=== PATIENT | female | born 1945 | race Hispanic/Latino ===

== ENCOUNTER 2019-09-19 15:44 | Inpatient (IN) | payer MEDICARE ==
[~2019-09-19] VITALS: Ht 144.8 cm; Wt 51.8 kg
[~2019-09-19 15:44] MED LIST: APIX2.5T PO; CARV12.580 PO; FURO40TA5 PO; HYDR-4154 PO; INSLAN SQ; INSU100C6 SQ; LEVO75TA10 PO; MYCOPHENOLATE PO; SIMV-43 PO; TACR0.5C12 PO
[2019-09-19 16:10] LABS: BASOPHILS % (AUTO) 0.1 % (0.0-5.0); HEMATOCRIT 31.3 % (36-48); LYMPHOCYTES % (AUTO) 11.6 % (21.0-51.0); MEAN CORPUSCULAR HEMOGLOBIN 25.8 pg (27.0-33.0); MEAN CORPUSCULAR HGB CONC 30.7 g/dL (32.0-36.0); MEAN CORPUSCULAR VOLUME 84.1 fL (79-99); MONOCYTES % (AUTO) 7.3 % (3.0-13.0); NEUTROPHILS % (AUTO) 78.3 % (40.0-77.0); PLATELET COUNT (AUTO) 211 K/uL (130-400); RED BLOOD CELL COUNT(AUTO) 3.72 MIL/uL (4.00-5.50); RED CELL DISTRIBUTION WIDTH 17.1 % (11.0-15.5); WHITE BLOOD COUNT (AUTO) 8.9 K/uL (4.8-10.8)
[2019-09-19 16:28] LABS: APPEARANCE,URINE CLOUDY (CLEAR); BILIRUBIN,URINE NEGATIVE (NEGATIVE); COLOR,URINE YELLOW (YELLOW); GLUCOSE, URINE (UA) NEGATIVE (NEGATIVE); KETONES,URINE NEGATIVE (NEGATIVE); LEUKOCYTE ESTERASE ,URINE LARGE (NEGATIVE); NITRATE,URINE POSITIVE (NEGATIVE); OCCULT BLOOD,URINE MODERATE (NEGATIVE); PH,URINE 5.5 (5.0-8.0); PROTEIN,URINE TRACE mg/dL (NEGATIVE); UROBILINOGEN,URINE 0.2 mg/dL (0.2-1.0)
[2019-09-19 16:44] LABS: CREATININE 1.7 mg/dL (0.5-1.5); POTASSIUM 3.2 mmol/L (3.5-5.1)
[2019-09-19 16:48] LABS: BILIRUBIN,TOTAL 0.6 mg/dL (0.2-1.0); TOTAL PROTEIN, SERUM 6.3 g/dL (6.0-8.3)
[2019-09-19 17:33] LABS: BACTERIA,URINE Few /HPF (None Seen); WBC,URINE 51-100 /HPF (0-1)
[2019-09-19 17:34] LABS: SQUAMOUS EPITHELIAL CELL,UR Rare /HPF (0-2)
[2019-09-19] MEDS ORDERED: CEFTRIAXONE SODIUM 1 GM ONE (18:27)
[2019-09-19] MEDS ORDERED: SODIUM CHLORIDE 0.9% 1000ML 1,000 ML IV ONE (18:28)
[2019-09-19] MEDS ORDERED: SODIUM CHLORIDE 0.9% 50 ML IV ONE (18:28)
[2019-09-20 00:52] VITALS: BP 131/61
[2019-09-20 03:27] VITALS: BP 127/54
[2019-09-20 04:11] LABS: HEMATOCRIT 29.9 % (36-48); MEAN CORPUSCULAR HEMOGLOBIN 26.3 pg (27.0-33.0); MEAN CORPUSCULAR HGB CONC 31.1 g/dL (32.0-36.0); MEAN CORPUSCULAR VOLUME 84.5 fL (79-99); PLATELET COUNT (AUTO) 212 K/uL (130-400); RED BLOOD CELL COUNT(AUTO) 3.54 MIL/uL (4.00-5.50); WHITE BLOOD COUNT (AUTO) 10.8 K/uL (4.8-10.8)
[2019-09-20 04:44] LABS: ALBUMIN 2.7 g/dL (3.5-5.0); BILIRUBIN,TOTAL 0.5 mg/dL (0.2-1.0); CREATININE 1.5 mg/dL (0.5-1.5); POTASSIUM 4.1 mmol/L (3.5-5.1); TOTAL PROTEIN, SERUM 5.8 g/dL (6.0-8.3)
[2019-09-20 07:30] VITALS: BP 114/47
[2019-09-20] MEDS ORDERED: [UNRECOGNIZED DRUG - OTHER] TP PRN (07:30)
[2019-09-20] MEDS ORDERED: HYDROCORTISONE/PRAMOXINE 10 GM FOAM RC PRN (07:30)
[2019-09-20] MEDS ORDERED: ERYTHROMYCIN TP PRN (07:30)
[2019-09-20] MEDS ORDERED: FERR-82 PO (07:49)
[2019-09-20] MEDS ORDERED: HC A30CR RC (07:49)
[2019-09-20] MEDS ORDERED: FURO40TA5 PO (07:49)
[2019-09-20] MEDS ORDERED: ERYT30GE8 TP (07:49)
[2019-09-20] MEDS ORDERED: PANT40TA54 PO (07:49)
[2019-09-20] MEDS ORDERED: TACR0.5C7 PO (07:49)
[2019-09-20] MEDS ORDERED: LEVO75 PO (07:49)
[2019-09-20] MEDS ORDERED: REVE175V IH (07:49)
[2019-09-20] MEDS ORDERED: PRED10TA3 PO (07:49)
[2019-09-20] MEDS ORDERED: MULT1CAP32 PO (07:49)
[2019-09-20] MEDS ORDERED: LEVO88TA7 PO (07:49)
[2019-09-20] MEDS ORDERED: CYAN100099 PO (07:49)
[2019-09-20] MEDS ORDERED: SODI325T PO (07:49)
[2019-09-20] MEDS ORDERED: CYCL30DR OU (07:49)
[2019-09-20] MEDS ORDERED: INSLAN SQ (07:49)
[2019-09-20] MEDS ORDERED: HYDR100T27 PO (07:49)
[2019-09-20] MEDS: PANTOPRAZOLE SODIUM 40 MG TABLET.DR PO SCH (08:05)
[2019-09-20] MEDS: FERROUS SULFATE 325 MG TABLET.DR PO SCH ×2 (08:08→17:42)
[2019-09-20] MEDS: LEVOTHYROXINE 88 MCG TABLET PO SCH (08:12)
[2019-09-20] MEDS: SODIUM BICARBONATE 650 MG TAB PO SCH ×2 (08:15→17:42)
[2019-09-20] MEDS: HYDRALAZINE HCL 25 MG TABLET PO SCH ×2 (09:00→20:26)
[2019-09-20] MEDS: REVEFENACIN IH SCH (09:00)
[2019-09-20] MEDS: ***HM***(Cyclosporine (Restasis) 1 DROP) OU SCH ×2 (09:00→20:28)
--- NOTE | 2019-09-20 10:12 | NUR ---
INITIAL SW spoke to patient's daughter, Yue Holguin, [phone]. She stated that patient lives with spouse, Jennifer Tay, [phone]. No home health but does have PHC with [facility] X 28 hours a week. Daughter is provider. DME: O2 concentrator/portable, walker with seat, shower chair, BPM, glucometer (uses insulin). As per daughter, patient is able to complete ADL's but needs help around the house. Patient does not drive. PCP is Dr. Tiffanie Howard. [facility]acy is [facility] in [place]. DCP is home. Addendum: 09/20/19 at 1016 by VIOLETTE CAM Amended: Links added.
[2019-09-20 11:00] VITALS: BP 129/57
[2019-09-20] MEDS: TACROLIMUS 0.5 MG CAPSULE PO SCH ×2 (11:34→20:28)
[2019-09-20] MEDS: CYANOCOBALAMIN (VITAMIN B-12) 1,000 MCG TABLET PO SCH (11:35)
[2019-09-20] MEDS: PREDNISONE 10 MG TABLET PO SCH (11:35)
[2019-09-20] MEDS: APIXABAN 2.5 MG TABLET PO SCH ×2 (11:36→20:26)
[2019-09-20] MEDS: MULTIVITAMIN TABLET PO SCH (11:36)
[2019-09-20] MEDS: CARVEDILOL 12.5 MG TABLET PO SCH ×2 (11:36→20:27)
[2019-09-20] MEDS: FUROSEMIDE 40 MG TABLET PO SCH ×2 (11:38→20:27)
[2019-09-20 16:00] VITALS: BP 141/65
[2019-09-20] MEDS ORDERED: CEFTRIAXONE SODIUM 1 GM IVP SCH (20:00)
[2019-09-20] MEDS: SIMVASTATIN 20 MG TABLET PO SCH (20:26)
--- NOTE | 2019-09-20 20:26 | NUR ---
MEDS RE-POSITIONED IN BED COMFORTABLY WITH HOB ELEVATED. SHIFT ASSESSMENT DONE, PLEASE REFER TO CHART. DUE MEDS ADMINISTERED, TOLERATED WELL. KEPT RESTED ND COMFORTABLE. CALL LIGHT WITHIN REACH. WILL MONITOR PT. Addendum: 09/20/19 at 2126 by ORLANDO CARBAJAL RN RN Amended: Links added.
[2019-09-20 20:41] VITALS: BP 142/67
[2019-09-20] MEDS ORDERED: INSULIN GLARGINE 100 UNITS/ML 10 ML VIAL SQ SCH (21:00)
--- NOTE | 2019-09-20 22:00 | NUR ---
[facility] PCP IN AND GAVE PT A BED BATH, TOLERATED ACTIVITY WELL. PT REFUSED THE WAFFLE MATTRESS, CLAIMS IT GIVE HER BODY ACHES.
[2019-09-21 00:20] VITALS: BP 155/67
--- NOTE | 2019-09-21 02:00 | NUR ---
ROUNDS PT FAIRLY ASLEEP WITH RESPIRATIONS EVEN AND UNLABORED. NO NOTED DISTRESS. KEPT UNDISTURBED FOR NOW. WILL MONITOR PT.
[2019-09-21 04:00] VITALS: BP 161/65
[2019-09-21] MEDS: PANTOPRAZOLE SODIUM 40 MG TABLET.DR PO SCH (06:20)
--- NOTE | 2019-09-21 07:15 | NUR ---
MD DR ANDREWS IN TO MAKE ROUNDS. NEW ORDERS GIVEN, PLEASE REFER TO CPOE. ENDORSING PT TO [facility] FOR MORE CARE AND MANAGEMENT.
[2019-09-21 07:30] VITALS: BP 127/57
[2019-09-21] MEDS: LEVOTHYROXINE 88 MCG TABLET PO SCH (08:12)
[2019-09-21] MEDS ORDERED: INSULIN HUMULIN R 100 UNIT/ML 3ML SQ SCH (08:15)
[2019-09-21] MEDS: ***HM***(Cyclosporine (Restasis) 1 DROP) OU SCH ×2 (09:00→21:00)
[2019-09-21] MEDS: HYDRALAZINE HCL 25 MG TABLET PO SCH ×2 (09:00→20:43)
[2019-09-21] MEDS: REVEFENACIN IH SCH (09:00)
[2019-09-21] MEDS: APIXABAN 2.5 MG TABLET PO SCH ×2 (10:02→20:42)
[2019-09-21] MEDS: FERROUS SULFATE 325 MG TABLET.DR PO SCH ×2 (10:03→16:49)
[2019-09-21] MEDS: SODIUM BICARBONATE 650 MG TAB PO SCH (10:03)
[2019-09-21] MEDS: TACROLIMUS 0.5 MG CAPSULE PO SCH ×2 (10:03→20:43)
[2019-09-21] MEDS: FUROSEMIDE 40 MG TABLET PO SCH ×2 (10:04→20:42)
[2019-09-21] MEDS: CARVEDILOL 12.5 MG TABLET PO SCH ×2 (10:04→20:43)
[2019-09-21] MEDS: MULTIVITAMIN TABLET PO SCH (10:04)
[2019-09-21] MEDS: PREDNISONE 10 MG TABLET PO SCH (10:04)
[2019-09-21] MEDS: CYANOCOBALAMIN (VITAMIN B-12) 1,000 MCG TABLET PO SCH (10:07)
[2019-09-21] MEDS ORDERED: CEFTAZIDIME PENTAHYDRATE 2 GM/VIAL IVP SCH (10:30)
[2019-09-21 10:49] VITALS: BP 136/55
[2019-09-21 11:55] LABS: INR 1.19 (0.85-1.15); PARTIAL THROMBOPLASTIN TIME 28.9 SEC (26.3-35.5); PROTHROMBIN TIME 12.8 SEC (9.6-11.6)
--- NOTE | 2019-09-21 15:21 | NUR ---
[facility] CONSULT PATIENT ASSESSED REQUESTED: PATIENT PRESENTS WITH STAGE II PRESSURE ULCER TO LT BUTTOCK AND AN UNSTAGEABLE PRESSURE ULCER TO RT HEEL. [facility] RECOMMENDATIONS SUBMITTED. Addendum: 09/21/19 at 1525 by LILI WHITEHEAD LVN Amended: Links added.
[2019-09-21 15:41] VITALS: BP 150/69
[2019-09-21] MEDS ORDERED: PHARMACY COMMUNICATION MISC SCH (16:15)
[2019-09-21] MEDS: INSULIN HUMULIN R 100 UNIT/ML 3ML SQ SCH ×2 (17:00→20:58)
[2019-09-21] MEDS: ZOSYN 3.375GM+NS 50ML 50 ML IV SCH (17:02)
[2019-09-21 19:00] VITALS: BP 140/62
[2019-09-21] MEDS: SIMVASTATIN 20 MG TABLET PO SCH (20:43)
[2019-09-21] MEDS ORDERED: INSULIN GLARGINE 100 UNITS/ML 10 ML VIAL SQ SCH ×2 (21:00)
[2019-09-22] VITALS: BP 155/67
[2019-09-22 04:00] VITALS: BP 146/62
[2019-09-22 04:20] LABS: HEMATOCRIT 27.3 % (36-48); MEAN CORPUSCULAR HEMOGLOBIN 26.2 pg (27.0-33.0); MEAN CORPUSCULAR HGB CONC 30.8 g/dL (32.0-36.0); PLATELET COUNT (AUTO) 169 K/uL (130-400); RED BLOOD CELL COUNT(AUTO) 3.21 MIL/uL (4.00-5.50); RED CELL DISTRIBUTION WIDTH 16.7 % (11.0-15.5); WHITE BLOOD COUNT (AUTO) 7.1 K/uL (4.8-10.8)
[2019-09-22 04:33] LABS: CREATININE 1.9 mg/dL (0.5-1.5); POTASSIUM 4.2 mmol/L (3.5-5.1)
[2019-09-22 05:28] LABS: BAND NEUTROPHILS % (MANUAL) 2 % (0-2); EOSINOPHILS % (MANUAL) 1 % (1-6); LYMPHOCYTES % (MANUAL) 19 % (22-44); MAN.DIFF COMMENT-IMPRESSION MANUAL DIFFERENTIAL; MONOCYTES % (MANUAL) 5 % (2-9); SEGMENTED NEUTROPHILS % 73 % (40-70)
[2019-09-22] MEDS: ZOSYN 3.375GM+NS 50ML 50 ML IV SCH (05:28)
[2019-09-22] MEDS ORDERED: DEXTROSE 50%-WATER 25 GM/50 ML VIAL IV STA (06:43)
[2019-09-22] MEDS: INSULIN HUMULIN R 100 UNIT/ML 3ML SQ SCH ×2 (06:50→12:18)
[2019-09-22] MEDS: PANTOPRAZOLE SODIUM 40 MG TABLET.DR PO SCH (06:51)
[2019-09-22] MEDS ORDERED: DEXTROSE 50%-WATER 50 ML DISP.SYRIN IV SCH (07:00)
[2019-09-22] MEDS: ***HM***(Cyclosporine (Restasis) 1 DROP) OU SCH (08:22)
[2019-09-22] MEDS: REVEFENACIN IH SCH (08:22)
[2019-09-22 08:30] VITALS: BP 150/65
[2019-09-22] MEDS: MULTIVITAMIN TABLET PO SCH (09:02)
[2019-09-22] MEDS: FUROSEMIDE 40 MG TABLET PO SCH (09:02)
[2019-09-22] MEDS: CYANOCOBALAMIN (VITAMIN B-12) 1,000 MCG TABLET PO SCH (09:02)
[2019-09-22] MEDS: FERROUS SULFATE 325 MG TABLET.DR PO SCH (09:02)
[2019-09-22] MEDS: HYDRALAZINE HCL 25 MG TABLET PO SCH (09:02)
[2019-09-22] MEDS: APIXABAN 2.5 MG TABLET PO SCH (09:02)
[2019-09-22] MEDS: LEVOTHYROXINE 88 MCG TABLET PO SCH (09:02)
[2019-09-22] MEDS: TACROLIMUS 0.5 MG CAPSULE PO SCH (09:02)
[2019-09-22] MEDS: PREDNISONE 10 MG TABLET PO SCH (09:06)
[2019-09-22] MEDS: CARVEDILOL 12.5 MG TABLET PO SCH (09:07)
[2019-09-22 12:16] VITALS: BP 136/50
[2019-09-23] MEDS ORDERED: LEVOTHYROXINE 75 MCG TABLET PO SCH (09:00)
== END 2019-09-22 14:30 | disposition home or self-care (01) | DRG 637 ==
LOC: EDH 15:44 → EDHIP 17:55 → 3BH 21:55
PROVIDERS: ADMIT Internal Medicine Nephrology; ATTEND Internal Medicine Nephrology
DX: E11.649 Type 2 diabetes mellitus with hypoglycemia without coma (principal); G93.41 Metabolic encephalopathy; T86.19 Other complication of kidney transplant; I12.0 Hypertensive chronic kidney disease with stage 5 chronic kidney disease or end stage renal disease; N39.0 Urinary tract infection, site not specified; J96.11 Chronic respiratory failure with hypoxia; Z16.12 Extended spectrum beta lactamase (ESBL) resistance; N18.6 End stage renal disease; N17.9 Acute kidney failure, unspecified; I27.20 Pulmonary hypertension, unspecified; I48.91 Unspecified atrial fibrillation; E03.9 Hypothyroidism, unspecified; G47.33 Obstructive sleep apnea (adult) (pediatric); E11.22 Type 2 diabetes mellitus with diabetic chronic kidney disease; E11.21 Type 2 diabetes mellitus with diabetic nephropathy; D64.9 Anemia, unspecified; E78.5 Hyperlipidemia, unspecified; B96.1 Klebsiella pneumoniae [K. pneumoniae] as the cause of diseases classified elsewhere; Z95.0 Presence of cardiac pacemaker; Z86.711 Personal history of pulmonary embolism; Z79.899 Other long term (current) drug therapy
CPT/HCPCS: 36415; 80048; 80053; 81001; 82947; 82948; 85025; 85027; 85610; 85730; 87077; 87088; 87186; G0378; J0696; J0713; J1815; J2543; J7030; J7070; J7507; J7512

== ENCOUNTER 2020-02-14 11:12 | Inpatient (IN) | payer MEDICARE ==
[~2020-02-14] VITALS: Ht 144.8 cm; Wt 64.4 kg
[~2020-02-14 11:12] MED LIST changes: +CYAN100099 PO; +CYCL30DR OU; +ERYT30GE8 TP; +FERR-82 PO; +HC A30CR RC; -HYDR-4154 PO; +HYDR100T27 PO; -INSU100C6 SQ; +LEVO75 PO; -LEVO75TA10 PO; +LEVO88TA7 PO; +MULT1CAP32 PO; -MYCOPHENOLATE PO; +PANT40TA54 PO; +PRED10TA3 PO; +REVE175V IH; +SODI325T PO; -TACR0.5C12 PO; +TACR0.5C7 PO
[2020-02-14 11:59] LABS: BASOPHILS % (AUTO) 0.2 % (0.0-5.0); EOSINOPHILS % (AUTO) 0.7 % (0.0-8.0); HEMATOCRIT 30.5 % (36-48); LYMPHOCYTES % (AUTO) 9.5 % (21.0-51.0); MEAN CORPUSCULAR HEMOGLOBIN 25.3 pg (27.0-33.0); MEAN CORPUSCULAR HGB CONC 30.5 g/dL (32.0-36.0); MEAN CORPUSCULAR VOLUME 83.1 fL (79-99); MONOCYTES % (AUTO) 4.7 % (3.0-13.0); PLATELET COUNT (AUTO) 196 K/uL (130-400); RED BLOOD CELL COUNT(AUTO) 3.67 MIL/uL (4.00-5.50); RED CELL DISTRIBUTION WIDTH 16.3 % (11.0-15.5); WHITE BLOOD COUNT (AUTO) 11.8 K/uL (4.8-10.8)
[2020-02-14 12:12] LABS: INR 1.01 (0.85-1.15); PARTIAL THROMBOPLASTIN TIME 25.2 SEC (26.3-35.5); PROTHROMBIN TIME 10.9 SEC (9.6-11.6)
[2020-02-14 12:16] LABS: CREATININE 1.9 mg/dL (0.5-1.5); POTASSIUM 3.6 mmol/L (3.5-5.1)
[2020-02-14 12:20] LABS: ALBUMIN 3.3 g/dL (3.5-5.0); BILIRUBIN,TOTAL 0.4 mg/dL (0.2-1.0); TOTAL PROTEIN, SERUM 6.5 g/dL (6.0-8.3)
[2020-02-14 13:30] LABS: APPEARANCE,URINE Clear (CLEAR); BILIRUBIN,URINE Negative (NEGATIVE); COLOR,URINE Yellow (YELLOW); GLUCOSE, URINE (UA) Negative (NEGATIVE); KETONES,URINE Negative (NEGATIVE); LEUKOCYTE ESTERASE ,URINE Small (NEGATIVE); NITRATE,URINE Negative (NEGATIVE); OCCULT BLOOD,URINE Trace (NEGATIVE); PH,URINE 5.5 (5.0-8.0); PROTEIN,URINE Negative (NEGATIVE); UROBILINOGEN,URINE 0.2 mg/dL (0.2-1.0)
[2020-02-14 13:43] LABS: BACTERIA,URINE Rare /HPF (None Seen); RBC,URINE 0-1 /HPF (0-1); SQUAMOUS EPITHELIAL CELL,UR Rare /HPF (0-2); WBC,URINE 0-1 /HPF (0-1)
[2020-02-14] MEDS ORDERED: ONDANSETRON 4 MG TABLET PO PRN (15:30)
[2020-02-14] MEDS ORDERED: ACETAMINOPHEN 325 MG TAB PO PRN (15:30)
[2020-02-14 18:20] VITALS: BP 120/49
--- NOTE | 2020-02-14 18:20 | NUR ---
ADMISSION PER DR. PHAN. 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 COPD. AND O2 DEPENDED . PT CAME IN FROM ER. WITH O2VIA NC [id number] AND A RICH CATHETER , SECURE TO HER LT THIGH, WITH A CLEAR YELLOW URINE, NOTED. REVIEW ADMISSION . DATA BASE PT IS UNABLETO DIRECT ANSWER TO QUESTIONS. PT IS O ELIQUIS DUE TO A-FIB. ON ELIQUIS .2.5 MG PO BID . CALL MARIAN WAS DIRECTED TO HER HANDS,
[2020-02-14 19:00] VITALS: BP 136/60
[2020-02-14] MEDS ORDERED: DEXTROSE 50%-WATER 50 ML DISP.SYRIN IV PRN (21:30)
[2020-02-14] MEDS ORDERED: GLUCAGON 1MG KIT 1 MG ML IM PRN (21:30)
[2020-02-15] VITALS: BP 133/57
[2020-02-15 04:00] VITALS: BP 140/51
[2020-02-15 05:21] LABS: HEMATOCRIT 28.8 % (36-48); MEAN CORPUSCULAR HEMOGLOBIN 25.4 pg (27.0-33.0); MEAN CORPUSCULAR HGB CONC 30.9 g/dL (32.0-36.0); MEAN CORPUSCULAR VOLUME 82.1 fL (79-99); RED BLOOD CELL COUNT(AUTO) 3.51 MIL/uL (4.00-5.50); RED CELL DISTRIBUTION WIDTH 16.1 % (11.0-15.5); WHITE BLOOD COUNT (AUTO) 8.5 K/uL (4.8-10.8)
[2020-02-15 05:45] LABS: CREATININE 1.7 mg/dL (0.5-1.5); MAGNESIUM 1.5 mg/dL (1.80-2.40); POTASSIUM 3.6 mmol/L (3.5-5.1)
[2020-02-15] MEDS: INSULIN HUMULIN R 100 UNIT/ML 3ML SQ SCH ×3 (06:30→16:30)
[2020-02-15 07:30] VITALS: BP 134/69
[2020-02-15 11:00] VITALS: BP 125/53
[2020-02-15] MEDS ORDERED: CYANOCOBALAMIN (VITAMIN B-12) 1,000 MCG TABLET PO SCH (12:46)
[2020-02-15] MEDS ORDERED: FUROSEMIDE 40 MG TABLET PO SCH (12:46)
[2020-02-15] MEDS ORDERED: PANTOPRAZOLE SODIUM 40 MG TABLET.DR PO SCH (12:47)
[2020-02-15] MEDS ORDERED: FERROUS SULFATE 325 MG TABLET.DR PO SCH (12:48)
[2020-02-15] MEDS ORDERED: PREDNISONE 10 MG TABLET PO SCH (12:48)
[2020-02-15] MEDS ORDERED: HYDRALAZINE HCL 25 MG TABLET PO SCH (12:49)
[2020-02-15] MEDS ORDERED: MULTIVITAMIN TABLET PO SCH (12:50)
[2020-02-15] MEDS: SODIUM BICARBONATE 650 MG TAB PO SCH ×2 (12:53→17:00)
[2020-02-15 16:00] VITALS: BP 160/65
--- NOTE | 2020-02-15 16:14 | NUR ---
AMADA- SPOKE TO SPOUSE ON PHONE- STATES PATIENT HAS HAD TRANSPLANT SINCE 2004, HAD HD X < 1 YEAR PRIOR TO THAT, WAS GIVNE KIDNEY BY HER DAUGHTER LEONEL, WHO IS ALSO PT'S PROVIDER > 20 HR/WK; AND PROVIDES TRANSPORTATION TO APPOINTMENT, ETC. [facility] HAS W/CHAIR, ROLLING WALKER, SHOWER CHAIR, , DAUGHTER IS , DC PLAN IS HOME, CM TO FOLLOW Addendum: 02/15/20 at 1619 by NICOLE HONG RN CM Amended: Links added.
--- NOTE | 2020-02-15 17:00 | NUR ---
NOTE DISCHARGE INSTRUCTIONS GIVEN TO PATIENT AT THIS TIME. REFER TO DC SUMMARY FOR DETAILS. SPOKE TO HE WILL PICK HER UP AT 6:00 PM
--- NOTE | 2020-02-15 17:45 | NUR ---
NOTE DISCHARGE INSTRUCTIONS GIVEN AT THIS TIME. VERBALIZED UNDERSTANDING. REFER TO JULI CRISTOBAL FOR DETAILS. PATIENT WILL LEAVE WITH RICH CATH.. IT WAS REPORTED THAT SHE CAME IN WITH HEMATURIA FROM HOME BUT UPON INSERTION OF RICH IN ER THERE HAS NOT BEEN ANY URINE PRESENT. SHE WILL FOLLOW UP WITH DR FIGUEROA IN 2-3 DAYS AND WAS INSTRUCTED TO RESUME MEDS FROM HOME TOMORROW
[2020-02-15] MEDS ORDERED: APIXABAN 2.5 MG TABLET PO SCH (21:00)
[2020-02-15] MEDS ORDERED: TACROLIMUS 0.5 MG CAPSULE PO SCH (21:00)
[2020-02-15] MEDS ORDERED: CARVEDILOL 12.5 MG TABLET PO SCH (21:00)
[2020-02-15] MEDS ORDERED: SIMVASTATIN 20 MG TABLET PO SCH (21:00)
[2020-02-15] MEDS ORDERED: INSULIN GLARGINE 100 UNITS/ML 10 ML VIAL SQ SCH (21:00)
[2020-02-16] MEDS ORDERED: LEVOTHYROXINE 75 MCG TABLET PO SCH (06:30)
== END 2020-02-15 18:10 | disposition home or self-care (01) | DRG 698 ==
LOC: EDH 11:12 → EDHIP 14:24 → 3BH 17:56
PROVIDERS: ADMIT Internal Medicine Infectious Disease; ATTEND Internal Medicine Infectious Disease
DX: T86.19 Other complication of kidney transplant (principal); N18.6 End stage renal disease; N17.9 Acute kidney failure, unspecified; I12.0 Hypertensive chronic kidney disease with stage 5 chronic kidney disease or end stage renal disease; E11.22 Type 2 diabetes mellitus with diabetic chronic kidney disease; E03.9 Hypothyroidism, unspecified; E78.5 Hyperlipidemia, unspecified; I48.91 Unspecified atrial fibrillation; E66.9 Obesity, unspecified; D64.9 Anemia, unspecified; Y83.0 Surgical operation with transplant of whole organ as the cause of abnormal reaction of the patient, or of later complication, without mention of misadventure at the time of the procedure; R33.9 Retention of urine, unspecified; Y92.89 Other specified places as the place of occurrence of the external cause; Z88.5 Allergy status to narcotic agent; Z87.440 Personal history of urinary (tract) infections; Z86.73 Personal history of transient ischemic attack (TIA), and cerebral infarction without residual deficits; Z83.3 Family history of diabetes mellitus
CPT/HCPCS: 36415; 74176; 80048; 80053; 81001; 82550; 82948; 83690; 83735; 84484; 85025; 85027; 85610; 85730; 93005; G0378; J1815; J7507